=== PATIENT | female | born 1990 | race Caucasian/White ===

== ENCOUNTER 2017-04-27 11:30 | Emergency (ER) | payer MEDICAID, OTHER ==
[2017-04-27 12:26] VITALS: BP 118/71
[2017-04-27 17:13] LABS: Basophils % (Auto) 0.8 % (0.0-1.8); Eosinophils % (Auto) 3.1 % (0.0-4.3); Hematocrit 31.8 % (30.3-42.9); Hemoglobin 9.8 gm/dl (10.1-14.3); Mean Corpuscular HGB Conc 31 % (30-34); Platelet Count 278 K/mm3 (140-440); Red Blood Count 4.94 M/mm3 (3.65-5.03); Red Cell Distribution Width 19.6 % (13.2-15.2)
[2017-04-27 17:14] LABS: Mean Corpuscular Hemoglobin 20 pg (28-32); Mean Corpuscular Volume 64 fl (79-97)
--- NOTE | 2017-04-27 17:25 | Emergency Department Report ---
ED Chest Pain HPI - General Chief Complaint: Pain General Stated Complaint: CHEST/BACK PAIN Time Seen by Provider: 04/27/17 16:25 Source: patient Mode of arrival: Ambulatory Limitations: No Limitations - History of Present Illness MD Complaint: chest pain - Related Data Home Medications Medication Instructions Recorded Confirmed Last Taken Ferrous Sulfate [Ferrous Sulfate] 1 tab PO DAILY 11/15/14 11/15/14 11/12/14 Pnv with Ca,No.71/Iron/FA 1 tab PO DAILY 11/15/14 11/15/14 11/12/14 [ Vitamin Tablet] 1 tab Previous Rx's Medication Instructions Recorded Last Taken Type Pnv95/Ferrous Fumarate/FA 1 each PO QDAY #90 tablet 04/19/14 Unknown Rx [ Vitamins] Allergies Allergy/AdvReac Type Severity Reaction Status Date / Time No Known Allergies Allergy Verified 11/14/14 11:47 ED Review of Systems ROS: Stated complaint: CHEST/BACK PAIN Other details as noted in HPI ED Past Medical Hx - Past Medical History Previous Medical History?: No Hx Hypertension: No Hx Congestive Heart Failure: No Hx Diabetes: No Hx Deep Vein Thrombosis: No Hx Renal Disease: No Hx Sickle Cell Disease: No Hx Seizures: No Hx Asthma: No Hx COPD: No Hx HIV: No - Surgical History Past Surgical History?: No - Social History Smoking Status: Never Smoker Substance Use Type: Alcohol, Non Opiate Pain, Other - Medications Home Medications: Home Medications Medication Instructions Recorded Confirmed Last Taken Type Pnv95/Ferrous Fumarate/FA 1 each PO QDAY #90 tablet 04/19/14 Unknown Rx [ Vitamins] Ferrous Sulfate [Ferrous Sulfate] 1 tab PO DAILY 11/15/14 11/15/14 11/12/14 History Pnv with Ca,No.71/Iron/FA 1 tab PO DAILY 11/15/14 11/15/14 11/12/14 History [ Vitamin Tablet] 1 tab ED Physical Exam - General Limitations: No Limitations ED Course Vital Signs 04/27/17 12:20 Temperature 98.6 F Pulse Rate 72 Respiratory 20 Rate Blood Pressure 118/71 O2 Sat by Pulse 100 Oximetry Critical care attestation.: If time is entered above; I have spent that time in minutes in the direct care of this critically ill patient, excluding procedure time. ED Disposition Condition: Stable Referrals: PRIMARY CARE, [Primary Care Provider] - 3-5 Days
[2017-04-27 17:31] LABS: Anion Gap 19 mmol/L; Blood Urea Nitrogen 5 mg/dL (7-17); Calcium 8.6 mg/dL (8.4-10.2); Carbon Dioxide 21 mmol/L (22-30); Chloride 99.8 mmol/L (98-107); Glucose 93 mg/dL (65-100); Potassium 3.5 mmol/L (3.6-5.0); Sodium 136 mmol/L (137-145)
--- NOTE | 2017-04-27 17:54 | Emergency Department Report ---
Chief Complaint: Pain General Stated Complaint: CHEST/BACK PAIN Time Seen by Provider: 04/27/17 16:25 - HPI History of Present Illness: 27-year-old female past medical history none on oral contraceptives presents with complaint of several days of shortness of breath at rest and chest pain. Patient states that she has been experiencing palpitations since last Tuesday. Patient states that they occur at rest or with exertion. - ROS Review of Systems: 3-4 days of intermittent palpitations and pleuritic chest pain - Exam Vital Signs: Vital Signs 04/27/17 12:20 Temperature 98.6 F Pulse Rate 72 Respiratory 20 Rate Blood Pressure 118/71 O2 Sat by Pulse 100 Oximetry Physical Exam: Heart S1-S2, lungs clear to auscultation MSE screening note: Focused history and physical exam performed. Due to findings the following was ordered: Screening Assessment/Plan/Differential Dx: Pleuritic chest pain, new onset 1- This initial assessment/diagnostic orders/clinical plan/ treatment(s) is/are subject to change based on pt's health status, clinical progression and re- assessment by fellow clinical providers in the ED. Further treatment and workup at subsequent clinical provers discretion. Patient/guardians urged not to elope from ED as their condition may be serious if not clinically assessed and managed. 2-As patient has been on oral contraceptives and complained of pleuritic chest pain I ordered d-dimer which was positive 3-patient incidentally is currently , patient was not aware of this, I informed her 4-I discussed the case with Dr. Curiel. As patient is with complaint of pleuritic chest pain and palpitations PE workup may be required. Patient to be up triaged and seen and evaluated fully by attending. Preliminary orders placed for blood work, OB ultrasound. Patient has been updated on clinical plan and my clinical concerns ED Medical Decision Making - Lab Data Result diagrams: 04/27/17 16:59 04/27/17 16:59 ED Disposition for MSE Condition: Stable Referrals: PRIMARY CARE, [Primary Care Provider] - 3-5 Days
--- NOTE | 2017-04-27 20:02 | Emergency Department Report ---
ED General Adult HPI - General Chief complaint: Pain General Stated complaint: CHEST/BACK PAIN Time Seen by Provider: 04/27/17 16:25 Source: patient Mode of arrival: Ambulatory Limitations: No Limitations - History of Present Illness MD Complaint: CHEST PAIN, BACK PAIN -: Gradual, days(s) (5) Location: chest, back Radiation: non-radiation Severity scale (0 -10): 3 Quality: sharp Consistency: intermittent Improves with: rest Worsens with: none Associated Symptoms: denies other symptoms Treatments Prior to Arrival: none - Related Data Home Medications Medication Instructions Recorded Confirmed Last Taken Ferrous Sulfate [Ferrous Sulfate] 1 tab PO DAILY 11/15/14 11/15/14 11/12/14 Pnv with Ca,No.71/Iron/FA 1 tab PO DAILY 11/15/14 11/15/14 11/12/14 [ Vitamin Tablet] 1 tab Previous Rx's Medication Instructions Recorded Last Taken Type Pnv95/Ferrous Fumarate/FA 1 each PO QDAY #90 tablet 04/19/14 Unknown Rx [ Vitamins] Acetaminophen/Codeine [Tylenol 1 tab PO Q6H PRN #7 tab 04/27/17 Unknown Rx /Codeine # 3 tab] Allergies Allergy/AdvReac Type Severity Reaction Status Date / Time No Known Allergies Allergy Verified 11/14/14 11:47 ED Review of Systems ROS: Stated complaint: CHEST/BACK PAIN Other details as noted in HPI Comment: All other systems reviewed and negative Constitutional: no symptoms reported Cardiovascular: chest pain Musculoskeletal: back pain ED Past Medical Hx - Past Medical History Previous Medical History?: No Hx Hypertension: No Hx Congestive Heart Failure: No Hx Diabetes: No Hx Deep Vein Thrombosis: No Hx Renal Disease: No Hx Sickle Cell Disease: No Hx Seizures: No Hx Asthma: No Hx COPD: No Hx HIV: No - Surgical History Past Surgical History?: No - Social History Smoking Status: Never Smoker Substance Use Type: Alcohol, Non Opiate Pain, Other - Medications Home Medications: Home Medications Medication Instructions Recorded Confirmed Last Taken Type Pnv95/Ferrous Fumarate/FA 1 each PO QDAY #90 tablet 04/19/14 Unknown Rx [ Vitamins] Ferrous Sulfate [Ferrous Sulfate] 1 tab PO DAILY 11/15/14 11/15/14 11/12/14 History Pnv with Ca,No.71/Iron/FA 1 tab PO DAILY 11/15/14 11/15/1415 History [ Vitamin Tablet] 1 tab Acetaminophen/Codeine [Tylenol 1 tab PO Q6H PRN #7 tab 04/27/17 Unknown Rx /Codeine # 3 tab] ED Physical Exam - General Limitations: No Limitations General appearance: alert, in no apparent distress - Head Head exam: Present: atraumatic - Eye Eye exam: Present: normal appearance - ENT ENT exam: Present: normal exam - Neck Neck exam: Present: normal inspection - Respiratory Respiratory exam: Present: normal lung sounds bilaterally, respiratory distress - Cardiovascular Cardiovascular Exam: Present: regular rate, normal rhythm - GI/Abdominal GI/Abdominal exam: Present: soft - Extremities Exam Extremities exam: Present: normal inspection - Back Exam Back exam: Present: normal inspection - Neurological Exam Neurological exam: Present: alert, altered, oriented X3 - Psychiatric Psychiatric exam: Present: normal affect, normal mood - Skin Skin exam: Present: warm, dry ED Course Vital Signs 04/27/17 12:20 Temperature 98.6 F Pulse Rate 72 Respiratory 20 Rate Blood Pressure 118/71 O2 Sat by Pulse 100 Oximetry ED Medical Decision Making - Lab Data Result diagrams: 04/27/17 16:59 04/27/17 16:59 Critical care attestation.: If time is entered above; I have spent that time in minutes in the direct care of this critically ill patient, excluding procedure time. ED Disposition Clinical Impression: Back pain, Chest pain, Subchorionic hematoma Disposition: DC-01 TO HOME OR SELFCARE Is pt being admited?: No Condition: Stable Instructions: Chest Pain (ED) Prescriptions: Acetaminophen/Codeine [Tylenol /Codeine # 3 tab] 1 tab PO Q6H PRN #7 tab PRN Reason: Pain Referrals: THEODORE AGUAYO MD [Staff Physician] - 3-5 Days
--- NOTE | 2017-04-27 20:03 | Ultrasound Report ---
FINAL REPORT EXAM: US OB \T\lt; = 14 WEEKS FETUS HISTORY: , unknown gestational age, chest pain TECHNIQUE: Ultrasound obstetrical transabdominal PRIORS: None. FINDINGS: There is gestational sac present within the uterus pole is identified with crown-rump length of 9.6 millimeters corresponding to estimated gestational age of 7 weeks 0 days with estimated date of delivery December 14, 2017 There is yolk sac identified. There is a hypoechoic focus adjacent to the gestational sac measuring 0.9 by 1.1 x 0.47 centimeters consistent with a small to moderate subchorionic hemorrhage The right ovary is 4.0 x 2.6 x 3.2 centimeters. There is a 1.6 centimeter right ovarian cyst the left ovary is 2.1 x 1.1 x 2.5 centimeters. No abnormal mass or cyst identified No free fluid seen within the cul-de-sac IMPRESSION: Single live intrauterine gestation estimated at 7 weeks 0 days Small to moderate subchorionic hemorrhage
--- NOTE | 2017-04-27 20:38 | Ultrasound Report ---
FINAL REPORT PROCEDURE: US OB TRANSVAGINAL TECHNIQUE: Real-time transvaginal sonography of the uterus, placenta, amniotic fluid, adnexa, and fetus was performed with image documentation. Measurements were obtained to determine age/size. M-mode Doppler was used to document heartbeat. CPT 12339 HISTORY: , unknown gestational age, chest pain COMPARISON: No prior studies are available for comparison. FINDINGS: CRL: 9.6mm, which corresponds to a gestational age of: 7weeks, 0 days. Yolk Sac: Normal. Embryonic Cardiac Activity: 134 beats per minute Gestational Sac: Normal. There is a 1.7 centimeter adjacent implantation bleed. Right Ovary: The right ovary is enlarged and contains a 1.6 centimeter corpus luteal cyst. Left Ovary: Normal. Estimated delivery date: 12/14/2017 Comment: Complete anatomic survey at 18-20 weeks suggested. IMPRESSION: 1. Single living intrauterine gestation at approximately 7 weeks 2. EDC by US 12/14/2017. 3. There is a 1.7 centimeter subchorionic implantation bleed. 4. The right ovary is enlarged and contains a 1.6 centimeter corpus luteal cyst.
--- NOTE | 2017-04-28 07:56 | XRay Report ---
AP CHEST: HISTORY: chest pain AP view of the chest demonstrates a normal mediastinal and cardiac contour with clear lungs and normal bony and soft tissue structures. IMPRESSION: Unremarkable AP chest.
== END 2017-04-28 00:25 | disposition home or self-care (01) ==
LOC: ED 11:30
DX: O46.91 Antepartum hemorrhage, unspecified, first trimester (principal); O26.891 Other specified pregnancy related conditions, first trimester; R07.9 Chest pain, unspecified; M54.9 Dorsalgia, unspecified; Z3A.01 Less than 8 weeks gestation of pregnancy
CPT/HCPCS: 36415; 71010; 76801; 76817; 80048; 82553; 84484; 84702; 84703; 85025; 85379; 86850; 86900; 86901; 93005; 93010; 99284

== ENCOUNTER 2017-12-07 23:20 | Outpatient (CLI) | payer MEDICAID ==
[2017-12-07 23:32] VITALS: BP 123/63
== END 2017-12-08 00:30 | disposition home or self-care (01) ==
LOC: TRG 23:20
PROVIDERS: ATTEND Obstetrics & Gynecology
DX: O47.1 False labor at or after 37 completed weeks of gestation (principal); Z3A.39 39 weeks gestation of pregnancy

== ENCOUNTER 2017-12-08 04:11 | Inpatient (IN) | payer MEDICAID ==
[2017-12-08] MEDS ORDERED: SUBLIMAZE IV PRN (04:44)
[2017-12-08] MEDS ORDERED: LACTATED RINGERS 1,000 ML IV SCH (05:00)
[2017-12-08] MEDS ORDERED: PITOCin/NS 20 UNIT/1000ML DRIP 20 UNITS/1,000 ML BAG IV SCH (05:00)
[2017-12-08 05:13] LABS: Hematocrit 31.1 % (30.3-42.9); Hemoglobin 9.8 gm/dl (10.1-14.3); Mean Corpuscular HGB Conc 32 % (30-34); Platelet Count 229 K/mm3 (140-440); Red Blood Count 4.65 M/mm3 (3.65-5.03)
[2017-12-08 06:03] LABS: Mean Corpuscular Hemoglobin 21 pg (28-32); Mean Corpuscular Volume 67 fl (79-97); Red Cell Distribution Width 21.9 % (13.2-15.2)
[2017-12-08] MEDS ORDERED: ePHEDrine SULFATE ONE (06:15)
[2017-12-08] MEDS ORDERED: NARCAN 2 MG/2 ML IV PRN (06:24)
[2017-12-08] MEDS ORDERED: ePHEDrine SULFATE IV PRN (06:24)
[2017-12-08] MEDS ORDERED: SUBLIMAZE ONE (06:27)
[2017-12-08] MEDS ORDERED: fentaNYL-BUPIV 2 MCG/ML-0.125% 200 MCG/100 ML BAG EPIDURAL SCH (07:00)
--- NOTE | 2017-12-08 07:05 | Anesthesia Consultation ---
Anesthesia Consult and Med Hx Date of service: 12/08/17 - Airway Anesthetic Teeth Evaluation: Good ROM Head & Neck: Adequate Mental/Hyoid Distance: Adequate Mallampati Class: Class III Intubation Access Assessment: Probably Good - Pulmonary Exam CTA: Yes - Cardiac Exam Cardiac Exam: RRR - Pre-Operative Health Status ASA Pre-Surgery Classification: ASA2 Proposed Anesthetic Plan: Epidural, Spinal - Pulmonary Hx Smoking: No Hx Asthma: No COPD: No Hx Pneumonia: No - Cardiovascular System Hx Hypertension: No - Central Nervous System Hx Seizures: No Hx Psychiatric Problems: No - Endocrine Hx Renal Disease: No Hx End Stage Renal Disease: No Hx Hypothyroidism: No Hx Hyperthyroidism: No - Hematic Hx Anemia: Yes (IRON BID) Hx Sickle Cell Disease: No - Other Systems Hx Alcohol Use: No
--- NOTE | 2017-12-08 07:05 | Anesthesia Day of Surgery ---
Anesthesia Day of Surgery - Day of Surgery Patient Examined: Yes Patient H&P Reviewed: Yes Patient is NPO: Yes
--- NOTE | 2017-12-08 08:24 | History and Physical Report ---
History of Present Illness Date of examination: 12/08/17 Date of admission: 12/08/17 04:39 Chief complaint: I'm in labor History of present illness: Patient is a 27 year old who presents in active labor at 39.4 weeks gestation with EDC 12/10/17. She received care at [facility], but records are not available for review. Per the patient she has had an uncomplicated course Past History Past Medical History: no pertinent history Past Surgical History: no surgical history Family/Genetic History: none Social history: - Obstetrical History Expected Date of Delivery: 12/10/17 Actual Gestation: 39 Week(s) 5 Day(s) : 4 Para: 3 Number of Living Children: 3 Medications and Allergies Allergies Allergy/AdvReac Type Severity Reaction Status Date / Time No Known Allergies Allergy Verified 11/14/14 11:47 Home Medications Medication Instructions Recorded Confirmed Last Taken Type Pnv95/Ferrous Fumarate/FA 1 each PO QDAY #90 tablet 04/19/14 Unknown Rx [ Vitamins] Ferrous Sulfate [Ferrous Sulfate] 1 tab PO DAILY 11/15/14 11/15/14 11/12/14 History Pnv with Ca,No.71/Iron/FA 1 tab PO DAILY 11/15/14 11/15/14 11/12/14 History [ Vitamin Tablet] 1 tab Acetaminophen/Codeine [Tylenol 1 tab PO Q6H PRN #7 tab 04/27/17 Unknown Rx /Codeine # 3 tab] Active Meds: Active Medications Ephedrine Sulfate (Ephedrine Sulfate) 10 mg IV Q2M PRN PRN Reason: Hypotension Fentanyl (Sublimaze) 100 mcg IV Q2H PRN PRN Reason: Labor pain Last Admin: 12/08/17 05:18 Dose: 100 mcg Lactated Ringer's (Lactated Ringers) 1,000 mls @ 125 mls/hr IV DIRECT DAVE Last Admin: 12/08/17 05:02 Dose: 125 mls/hr Oxytocin/Sodium Chloride (Pitocin/Ns 20 Unit/1000ml Drip) 20 units in 1,000 mls @ 125 mls/hr IV DIRECT DAVE Fentanyl/Bupivacaine/Sodium Chlor (Fentanyl-Bupiv 2 Mcg/Ml-0.125%) 200 mcg in 100 mls @ 12 mls/hr EPIDURAL TITR DAVE PRN Reason: Protocol Naloxone HCl (Narcan 2 Mg/2 Ml) 0.2 mg IV Q5M PRN PRN Reason: Respiratory sedation Review of Systems All systems: negative Genitourinary: pelvic pain, contractions - Vital Signs Vital signs: Vital Signs Pulse BP 82 134/83 12/08/17 04:52 12/08/17 04:52 Temp Pulse Resp BP Pulse Ox 97.4 F L 78 22 128/70 86 12/08/17 04:54 12/08/17 08:18 12/08/17 04:54 12/08/17 08:18 12/08/17 08:07 - Physical Exam Breasts: Cardiovascular: Regular rate, Normal S1, Normal S2 Lungs: Positive: Clear to auscultation, Normal air movement Abdomen: Positive: normal appearance, soft, normal bowel sounds. Negative: distention, tenderness Genitourinary (Female): Positive: normal external genitalia, normal perenium Vulva: both: normal Vagina: Positive: normal moisture. Negative: discharge Cervix: Negative: lesion, discharge Uterus: Positive: normal size, normal contour Adnexa: both: normal Anus/Rectum: Positive: normal perianal skin, heme negative. Negative: rectal mass, hemorrhoids Extremities: Deep Tendon Reflex Grade: Normal +2 - Obstetrical Cervical Dilatation: 8 Cervical Effacement Percentage: 100 station: -2 Uterine Contraction Frequency (min): 4 Uterine Contraction Intensity: Moderate Results Result Diagrams: 12/08/17 04:30 Abnormal lab results 12/08/17 Range/Units 04:30 Hgb 9.8 L (10.1-14.3) gm/dl MCV 67 L (79-97) fl MCH 21 L (28-32) pg RDW 21.9 H (13.2-15.2) % All other labs normal. Assessment and Plan IUp at 39.5weeks in active labor. Admit to L&d. Get epidural. AROM. Anticipate . Will attempt to get records
--- NOTE | 2017-12-08 08:31 | Procedure Note ---
OB Delivery Note - Delivery Date of Delivery: 12/08/17 Surgeon: INOCENCIA SEO Estimated blood loss: 200cc - Vaginal Delivery presentation: vertex Delivery position: OA Intrapartum events: none Delivery induction: none Delivery augmentation: rupture of membranes Delivery monitor: external FHT, external uterine Route of delivery: Delivery placenta: spontaneous Delivery cord: 3 umbilical vessels Episiotomy: none Delivery laceration: none Anesthesia: epidural Delivery comments: Viable male delivered over intact perineum without nuchal cord. Infant placed on maternal abdomen. Cord clamped and cut when done pulsing. Placenta delivered spontaneously and intact with 3vc. No lacerations. Patient tolerated procedure well. Weight 7 pounds 7 ounces - A at 1 minute: 8 at 5 minutes: 9 Gender: Male (7 pounds 7 ounces)
[2017-12-08] MEDS ORDERED: SODIUM CHLORIDE FLUSH SYRINGE 10 ML IV NR (11:13)
[2017-12-08] MEDS ORDERED: BENADRYL PO PRN (11:13)
[2017-12-08] MEDS ORDERED: DULCOLAX PR PRN (11:13)
[2017-12-08] MEDS ORDERED: PHENERGAN PR PRN (11:13)
[2017-12-08] MEDS ORDERED: COLACE PO SCH (11:13)
[2017-12-08] MEDS ORDERED: PHENERGAN PO PRN (11:13)
[2017-12-08] MEDS ORDERED: MILK OF MAGNESIA PO PRN (11:13)
[2017-12-08] MEDS ORDERED: TYLENOL PO PRN (11:13)
[2017-12-08] MEDS ORDERED: ZOFRAN IV PRN (11:13)
[2017-12-08] MEDS ORDERED: TUCKS PAD TP PRN (11:13)
[2017-12-08] MEDS ORDERED: LANSINOH TP PRN (11:13)
[2017-12-08] MEDS: MOTRIN PO SCH (17:04)
[2017-12-08 20:29] LABS: Hemoglobin 7.4 gm/dl (10.1-14.3)
[2017-12-09] MEDS: PRENATAL VITAMIN PO SCH ×2 (12:00→12:34)
[2017-12-09] MEDS: MOTRIN PO SCH (12:33)
--- NOTE | 2017-12-09 15:32 | Progress Note ---
Assessment and Plan PPD 1 s/p . Doing well. Patient's records received from [facility]. She is GBS negative. Will plan for discharge on today Subjective - Subjective Date of service: 12/09/17 Interval history: Patient is a 27 year old who presents in active labor at 39.4 weeks gestation with EDC 12/10/17. She received care at [facility], but records are not available for review. Per the patient she has had an uncomplicated course Patient reports: appetite normal, voiding normally, pain well controlled, ambulating normally : doing well Objective - Vital Signs Latest vital signs: Vital Signs Temp Pulse Resp BP BP Pulse Ox 12/09/17 08:11 98.2 F 64 20 111/65 99 12/09/17 03:00 97.6 F 75 114/70 12/09/17 01:30 97.5 F L 71 18 107/49 100 12/08/17 19:30 96.8 F L 60 20 12/08/17 16:12 98.1 F 62 20 118/76 100 Intake and Output 12/09/17 12/09/17 12/09/17 06:59 14:59 22:59 Intake Total 240 480 Balance 240 480 Intake: Oral 240 480 Other: Total, Intake Amount 120 120 # Voids Void 1 1 - Exam Breasts: Present: deferred Cardiovascular: Present: Regular rate, Normal S1, Normal S2 Lungs: Present: Clear to auscultation, Normal air movement Abdomen: Present: normal appearance, soft Uterus: Present: normal, firm, fundal height below umbilicus Extremities: Present: normal Deep Tendon Reflex Grade: Normal +2 - Labs Labs: Abnormal lab results 12/08/17 Range/Units 19:53 Hgb 7.4 L (10.1-14.3) gm/dl Hct 24.0 L D (30.3-42.9) %
--- NOTE | 2017-12-09 15:34 | Discharge Summary ---
Providers - Providers Date of Admission: 12/08/17 04:39 Date of discharge: 12/09/17 Attending physician: INOCENCIA SEO Primary care physician: JACINTO ART Hospitalization Reason for admission: active labor Delivery: Episiotomy: none complications: none Discharge diagnosis: IUP at term delivered baby: male Condition at discharge: Good Disposition: DC-01 TO HOME OR SELFCARE Plan - Discharge Medications Prescriptions: Ferrous Sulfate 325 mg PO BID #60 tablet. Ibuprofen [Motrin] 600 mg PO Q6H PRN #30 tablet PRN Reason: Pain - Provider Discharge Summary Activity: routine, no sex for 6 weeks, no heavy lifting 4 weeks, no strenuous exercise Diet: routine Instructions: routine Additional instructions: [] Smoking cessation referral if applicable(refer to patient education folder for contact #) [] Refer to [facility] Booklet Call your doctor immediately for: * Fever > 100.5 * Heavy vaginal bleeding ( >1 pad per hour) * Severe persistent headache * Shortness of breath * Reddened, hot, painful area to leg or breast * Drainage or odor from incision. * Keep incision clean and dry at all times and follow doctor's instructions regarding bathing/showering - Follow up plan Follow up: INOCENCIA SEO MD [Staff Physician] - 6 Weeks
[2017-12-09] MEDS ORDERED: M-M-R II VACCINE SUB-Q ONE (18:03)
[2017-12-09 19:16] VITALS: BP 124/75
== END 2017-12-09 19:35 | disposition home or self-care (01) | DRG 775 ==
LOC: TRG 04:11 → LD 04:39 → OB 09:54
PROVIDERS: ADMIT Obstetrics & Gynecology; ATTEND Obstetrics & Gynecology
PROC: 10E0XZZ Delivery of Products of Conception, External Approach (ICD-10-PCS; principal; 2017-12-08)
PROC: 3E0R3BZ Introduction of Anesthetic Agent into Spinal Canal, Percutaneous Approach (ICD-10-PCS; 2017-12-08)
PROC: 00HU33Z Insertion of Infusion Device into Spinal Canal, Percutaneous Approach (ICD-10-PCS; 2017-12-08)
PROC: 10907ZC Drainage of Amniotic Fluid, Therapeutic from Products of Conception, Via Natural or Artificial Opening (ICD-10-PCS; 2017-12-08)
DX: O99.02 Anemia complicating childbirth (principal); D64.9 Anemia, unspecified; Z3A.39 39 weeks gestation of pregnancy; Z37.0 Single live birth
CPT/HCPCS: 36415; 85014; 85018; 85027; 86592; 86850; 86900; 86901; 90707; 99211; G0463; J2590; J3010; J7120

== ENCOUNTER 2019-05-28 21:11 | Emergency (ER) | payer MEDICAID ==
[2019-05-28 21:21] VITALS: BP 117/63
--- NOTE | 2019-05-28 21:35 | Emergency Department Report ---
ED ENT HPI - General Chief complaint: Earache Stated complaint: EAR PAIN Time Seen by Provider: 05/28/19 21:31 Source: patient Mode of arrival: Ambulatory Limitations: No Limitations - History of Present Illness Initial comments: This is a 29-year-old female nontoxic well in appearance with no signs of distress presents to the ED with complaint of right earache. Patient denies any hearing loss. Denies any mastoid tenderness. Denies any fever, chills, headache, nausea, vomiting, chest pain or SOB. Denies any other complaints. Denies any allergies. MD complaint: ear pain -: days(s) Location: R ear Severity: mild Severity scale (0 -10): 8 Quality: aching Consistency: constant Improves with: none Worsens with: none Associated Symptoms: denies: fever, cough, gum swelling, toothache, pain with swallowing, sore throat, tinnitus, hearing loss, discharge from ear, rhinorrhea - Related Data Home Medications Medication Instructions Recorded Confirmed Last Taken Ferrous Sulfate 1 tab PO DAILY 11/15/14 11/15/14 11/12/14 Pnv with Ca,No.71/Iron/FA 1 tab PO DAILY 11/15/14 11/15/14 11/12/14 [ Vitamin Tablet] 1 tab Previous Rx's Medication Instructions Recorded Last Taken Type Pnv95/Ferrous Fumarate/FA 1 each PO QDAY #90 tablet 04/19/14 Unknown Rx [ Vitamins] Acetaminophen/Codeine [Tylenol 1 tab PO Q6H PRN #7 tab 04/27/17 Unknown Rx /Codeine # 3 tab] Ferrous Sulfate 325 mg PO BID #60 tablet. 12/08/17 Unknown Rx Ibuprofen [Motrin] 600 mg PO Q6H PRN #30 tablet 12/08/17 Unknown Rx Amoxicillin [Amoxicillin TAB] 875 mg PO BID #20 tablet 05/28/19 Unknown Rx Allergies Allergy/AdvReac Type Severity Reaction Status Date / Time No Known Allergies Allergy Verified 11/14/14 11:47 ED Dental HPI - General Chief complaint: Earache Stated complaint: EAR PAIN Time Seen by Provider: 05/28/19 21:31 Source: patient Mode of arrival: Ambulatory Limitations: No Limitations - Related Data Home Medications Medication Instructions Recorded Confirmed Last Taken Ferrous Sulfate 1 tab PO DAILY 11/15/14 11/15/14 11/12/14 Pnv with Ca,No.71/Iron/FA 1 tab PO DAILY 11/15/14 11/15/14 11/12/14 [ Vitamin Tablet] 1 tab Previous Rx's Medication Instructions Recorded Last Taken Type Pnv95/Ferrous Fumarate/FA 1 each PO QDAY #90 tablet 04/19/14 Unknown Rx [ Vitamins] Acetaminophen/Codeine [Tylenol 1 tab PO Q6H PRN #7 tab 04/27/17 Unknown Rx /Codeine # 3 tab] Ferrous Sulfate 325 mg PO BID #60 tablet. 12/08/17 Unknown Rx Ibuprofen [Motrin] 600 mg PO Q6H PRN #30 tablet 12/08/17 Unknown Rx Amoxicillin [Amoxicillin TAB] 875 mg PO BID #20 tablet 05/28/19 Unknown Rx Allergies Allergy/AdvReac Type Severity Reaction Status Date / Time No Known Allergies Allergy Verified 11/14/14 11:47 ED Review of Systems ROS: Stated complaint: EAR PAIN Other details as noted in HPI Constitutional: denies: chills, fever Eyes: denies: eye pain, eye discharge, vision change ENT: ear pain. denies: throat pain Respiratory: denies: cough, shortness of breath, wheezing Cardiovascular: denies: chest pain, palpitations Endocrine: no symptoms reported Gastrointestinal: denies: abdominal pain, nausea, diarrhea Genitourinary: denies: urgency, dysuria, discharge Musculoskeletal: denies: back pain, joint swelling, arthralgia Skin: denies: rash, lesions Neurological: denies: headache, weakness, paresthesias Psychiatric: denies: anxiety, depression Hematological/Lymphatic: denies: easy bleeding, easy bruising ED Past Medical Hx - Past Medical History Previous Medical History?: No Hx Hypertension: No Hx Congestive Heart Failure: No Hx Diabetes: No Hx Deep Vein Thrombosis: No Hx Renal Disease: No Hx Sickle Cell Disease: No Hx Seizures: No Hx Asthma: No Hx COPD: No Hx HIV: No - Surgical History Past Surgical History?: No - Social History Smoking Status: Never Smoker - Medications Home Medications: Home Medications Medication Instructions Recorded Confirmed Last Taken Type Pnv95/Ferrous Fumarate/FA 1 each PO QDAY #90 tablet 04/19/14 Unknown Rx [ Vitamins] Ferrous Sulfate 1 tab PO DAILY 11/15/14 11/15/14 11/12/14 History Pnv with Ca,No.71/Iron/FA 1 tab PO DAILY 11/15/14 11/15/14 11/12/14 History [ Vitamin Tablet] 1 tab Acetaminophen/Codeine [Tylenol 1 tab PO Q6H PRN #7 tab 04/27/17 Unknown Rx /Codeine # 3 tab] Ferrous Sulfate 325 mg PO BID #60 tablet. 12/08/17 Unknown Rx Ibuprofen [Motrin] 600 mg PO Q6H PRN #30 tablet 12/08/17 Unknown Rx Amoxicillin [Amoxicillin TAB] 875 mg PO BID #20 tablet 05/28/19 Unknown Rx ED Physical Exam - General Limitations: No Limitations General appearance: alert, in no apparent distress - Head Head exam: Present: atraumatic, normocephalic - Expanded ENT Exam Expanded Ear exam: Present: normal external inspection TM/Canal exam: Erythema: Right TM, Bulging: Right TM Mouth exam: Present: normal external inspection Teeth exam: Present: normal inspection Throat exam: Positive: normal inspection - Extremities Exam Extremities exam: Present: normal inspection, full ROM - Back Exam Back exam: Present: normal inspection, full ROM - Neurological Exam Neurological exam: Present: alert, oriented X3, normal gait - Psychiatric Psychiatric exam: Present: normal affect, normal mood - Skin Skin exam: Present: warm, dry, intact, normal color. Absent: rash ED Course Vital Signs 05/28/19 21:17 Temperature 98.6 F Pulse Rate 72 Respiratory 16 Rate Blood Pressure 117/63 O2 Sat by Pulse 100 Oximetry - Reevaluation(s) Reevaluation #1: 05/28/19 21:33 Patient is speaking in full sentences with no signs of distress noted. ED Medical Decision Making - Medical Decision Making Patient was instructed to Follow-up with a primary care doctor in 3-5 days or if symptoms worsen and continue return to emergency room as soon as possible. At time of discharge, the patient does not seem toxic or ill in appearance. No acute signs of distress noted. Patient agrees to discharge treatment plan of care. No further questions noted by the patient. Critical care attestation.: If time is entered above; I have spent that time in minutes in the direct care of this critically ill patient, excluding procedure time. ED Disposition Clinical Impression: Left otitis media Qualifiers: Otitis media type: unspecified Qualified Code(s): H66.92 - Otitis media, unspecified, left ear Disposition: DC-01 TO HOME OR SELFCARE Is pt being admited?: No Does the pt Need Aspirin: No Condition: Stable Instructions: Otitis Media (ED) Additional Instructions: Follow-up with a primary care doctor in 3-5 days or if symptoms worsen and continue return to emergency room as soon as possible. Prescriptions: Amoxicillin [Amoxicillin TAB] 875 mg PO BID #20 tablet Referrals: PRIMARY CARE, [Referring] - 3-5 Days IGNACIO OCASIO MD [Staff Physician] - 3-5 Days [facility] [Outside] - 3-5 Days [facility] [Outside] - 3-5 Days Forms: Work/School Release Form(ED)
== END 2019-05-28 21:57 | disposition home or self-care (01) ==
LOC: ED 21:11
DX: H66.91 Otitis media, unspecified, right ear (principal); Z79.899 Other long term (current) drug therapy
CPT/HCPCS: 99282